=== PATIENT | female | born 2000 | race Caucasian/White ===

== ENCOUNTER 2019-08-16 16:41 | Emergency (ER) | payer BC ==
--- NOTE | 2019-08-16 16:48 | UC ---
Syncope/New Syncope HPI - HPI Summary HPI Summary: 18 yo female presents, accompanied by her mother, with syncopal episode. Pt tells me that she play volleyball and, after school today, the performance improvement analyst was stretching pt's right shoulder behind pt's head. Pt began to feel slightly lightheaded, nauseous, and felt her vision slowly fade to black. The next thing she remembers is waking up on her back on the floor staring up at her performance improvement analyst. Upon waking she felt fine and sat up. [place] said she was "out" for <30 seconds. Since that time pt has felt fine. She has never had any episodes like this in the past. She had no associated SOB or chest pain/palpitations. She had crackers for lunch today and toast this morning, but nothing else. She has been an avid horn player for many years. No smoking hx. Pt currently denies any symptoms. No headache, dizziness, vision changes, SOB, chest pain, palpitations, abdominal pain, n/v, dysuria. Pt denies any personal PMHx. No drug use. Pt and mother state no family hx of seizures or cardiac problems/events. - History Of Current Complaint Stated Complaint: FAINTED Time Seen by Provider: 08/16/19 16:47 Hx Obtained From: Patient Onset/Duration: Sudden Onset - Allergies/Home Medications Allergies/Adverse Reactions: Allergies Allergy/AdvReac Type Severity Reaction Status Date / Time No Known Allergies Allergy Verified 08/16/19 16:56 Home Medications: Home Medications NK [No Home Medications Reported] 08/16/19 [History Confirmed 08/16/19] PMH/Surg Hx/FS Hx/Imm Hx - Additional Past Medical History Additional PMH: None - Surgical History Surgical History: None - Family History Known Family History: Positive: None - Social History Occupation: Student Lives: With Family Alcohol Use: None Substance Use Type: None Smoking Status (MU): Never Smoked Tobacco Review of Systems All Other Systems Reviewed And Are Negative: No Constitutional: Positive: Other - Syncopal episode Skin: Positive: Negative Eyes: Positive: Negative ENT: Positive: Negative Respiratory: Positive: Negative Cardiovascular: Positive: Negative Gastrointestinal: Positive: Negative Genitourinary: Positive: Negative Motor: Positive: Negative Neurovascular: Positive: Negative Musculoskeletal: Positive: Negative Neurological: Positive: Negative Psychological: Positive: Negative Physical Exam - Summary Physical Exam Summary: GENERAL: NAD. WDWN. No pain distress. SKIN: No rashes, sores, ulcers, masses, lesions. HEENT: Head: AT/NC. No raccoon eyes or battles sign. Eyes: PERRLA. EOM intact. Conjunctiva clear without inflammation or discharge. Ears: Hearing grossly normal. TMs intact, no bulging, erythema, or edema. No hemotympanum Nose: Nasal mucosa pink and moist. NTTP maxillary and frontal sinus. Throat: Posterior oropharynx without exudates, erythema, or tonsillar enlargement. Uvula midline. NECK: Supple. Nontender. FROM CHEST: CTAB. No r/r/w. No accessory muscle use. Breathing comfortably and in no distress. CV: RRR. Without m/r/g. Pulses intact. Brisk cap refill. ABDOMEN: Soft. NTTP. Bowel sounds present MSK: FROM in B/L UEs and LEs with symmetric strength. NEURO: A&Ox3. 3 word recall, remote, recent memory, ability to follow 2-step directions, and attention intact. CN: II: Peripheral enriquez intact. Vision normal. III, IV, : EOMI. No nystagmus. PERRLA. V: Sensations intact and symmetric. Opens mouth and clenches teeth. VII: No facial asymmetry. Forehead wrinkles. Grins, shuts eyes, frowns, puffs cheeks. VIII: Hearing intact to finger rub. IX, X: Swallows and coughs. Uvula midline. XI: Shrugs shoulders. Turns head against resistance. XII: No tongue deviation [id number] are intact. Gait with normal base. Romberg: maintains balance, no pronator drift. Normal speech. No facial drooping. PSYCH: Age appropriate behavior. Triage Information Reviewed: Yes Vital Signs: Vital Signs: Temp Pulse Resp BP Pulse Ox 98.9 F 85 18 127/83 98 08/16/19 16:52 08/16/19 16:52 08/16/19 16:52 08/16/19 16:52 08/16/19 16:52 Laboratory Tests 08/16/19 08/16/19 17:06 17:08 POC Urine Color Yellow POC Urine Clarity Clear POC Urine pH 7.0 POC Ur Specif [place] 1.020 POC Urine Protein Negative POC Ur Glucose (UA) Negative POC Urine Ketones Negative POC Urine Blood Negative POC Urine Nitrite Negative POC Urine Bilirubin Negative POC Urine Urobilinogen 0.2 POC U Leukocyte Esteras Trace A POC Ur Test Negative Orthostatic vitals: Laying 124/66 70bpm Sitting 116/63 86bpm Standing 111/65 102bpm Vital Signs Reviewed: Yes Diagnostics - EKG ST Segment: Normal Summary of EKG Findings: NSR 81bpm No ST changes as read by Dr. Crews Syncope Course/Dx - Course Course Of Treatment: Exam WNL. EKG, POC glucose, UA, and negative/unremarkable. Orthostatic vitals WNL. Her history is most consistent with a vagal response. She has no personal or familial risk factors and has been a very active athlete for many years with no symptoms, near-syncopal episodes, or syncopal episodes. I discussed this with pt and mother with her. I offered them a further evaluation, including labwork and cardiac monitoring in the ED, but they declined this. I advised pt to refrain from sports and physical activities until cleared by PCP or specialist. Advised to f/u with PCP early next week for follow up - if pt has any symptoms such as headache, dizziness, vision changes, SOB, chest pain, palpitations, near -syncope, or syncope prior to her appt to go to the ED immediately. Pt and mother with her voiced understanding and agree with the plan. - Differential Dx/Diagnosis Provider Diagnosis: Vaso vagal episode Discharge ED - Sign-Out/Discharge Documenting (check all that apply): Patient Departure All imaging exams completed and their final reports reviewed: No Studies - Discharge Plan Condition: Stable Disposition: HOME Patient Education Materials: Syncope (ED) Referrals: Karen Bar [Primary Care Provider] - As Soon As Possible Additional Instructions: If you develop a fever, shortness of breath, chest pain, new or worsening symptoms - please go to the ED immediately. Please schedule a follow up appointment with your primary doctor for early next week for a recheck. No sports until cleared by [facility] or PCP - Billing Disposition and Condition Condition: STABLE Disposition: Home
[2019-08-16 16:56] VITALS: BP 127/83
--- NOTE | 2019-08-17 16:32 | UC ---
- Progress Note Progress Note: I CALLED THE PATIENT. NAME AND DATE OF VERIFIED. ADVISED THAT URINE CULTURE RETURNED WITH GREATER THAN 100,000 CFU/ML OF E. COLI. PATIENT DID NOT HAVE ANY URINARY SYMPTOMS DURING HER ENCOUNTER YESTERDAY. URINE DIP WAS ONLY POSITIVE FOR TRACE LEUKS. SHE CONTINUES TO DENY ANY URINARY SYMPTOMS TODAY. NO DYSURIA, FREQUENCY, URGENCY, FEVER. DISCUSSED OPTION OF TREATING FOR UTI BASED ON CULTURE RESULTS VERSUS REPEATING URINE TEST TO CONFIRM RESULTS. PATIENT STATES SHE FEELS WELL TODAY AND WOULD PREFER TO REPEAT THE URINE TEST WITH HER PCP. SHE WILL EITHER COME BACK HERE TO THE URGENT CARE THIS WEEKEND OR FOLLOW UP WITH HER PCP ON MONDAY MORNING. Course/Dx - Diagnoses Provider Diagnoses: Vaso vagal episode Discharge ED - Sign-Out/Discharge Documenting (check all that apply): Post-Discharge Follow Up All imaging exams completed and their final reports reviewed: No Studies - Discharge Plan Condition: Stable Disposition: HOME Patient Education Materials: Syncope (ED) Referrals: Kraen Bar [Primary Care Provider] - As Soon As Possible Additional Instructions: If you develop a fever, shortness of breath, chest pain, new or worsening symptoms - please go to the ED immediately. Please schedule a follow up appointment with your primary doctor for early next week for a recheck. No sports until cleared by [facility] or PCP - Billing Disposition and Condition Condition: STABLE Disposition: Home
== END 2019-08-16 17:34 | disposition home or self-care (01) ==
LOC: UCEAST 16:41
DX: R55 Syncope and collapse (principal); Z32.02 Encounter for pregnancy test, result negative
CPT/HCPCS: 81003; 84702; 87077; 87086; 87186; 99202; G0463

== ENCOUNTER 2019-09-14 21:03 | Emergency (ER) | payer BC ==
--- NOTE | 2019-09-14 21:28 | ED ---
GI/ HPI - HPI Summary HPI Summary: This patient is a 18 year old female presenting to [facility] with a chief complaint of vomiting since twelve hours ago. The patient states she was drinking last night and had "a bunch of shots" of vodka. She denies fever, diarrhea. She states abdominal discomfort. She reports chills. She reports no medical history and NKDA. - History of Current Complaint Chief Complaint: EDNauseaVomitDiarrh Time Seen by Provider: 09/14/19 21:15 Stated Complaint: "VOMITING PER PT" Hx Obtained From: Patient Hx Last Menstrual Period: iud Onset/Duration: Started Hours Ago Pain Intensity: 6 - Allergy/Home Medications Allergies/Adverse Reactions: Allergies Allergy/AdvReac Type Severity Reaction Status Date / Time No Known Allergies Allergy Verified 08/16/19 16:56 Home Medications: Home Medications Levonorgestrel (Iud) [Kyleena IUD] 17.5 mcg IU SEE INSTRUCTIONS 09/14/19 [ History Confirmed 09/14/19] PMH/Surg Hx/FS Hx/Imm Hx Cardiovascular History: Denies: Hx Coronary Artery Disease Respiratory History: Denies: Hx Chronic Obstructive Pulmonary Disease (COPD) Infectious Disease History: No Infectious Disease History: Denies: Traveled Outside the [place] in Last 30 Days - Family History Known Family History: Negative: Cardiac Disease, Diabetes - Social History Alcohol Use: None Substance Use Type: Reports: None Smoking Status (MU): Never Smoked Tobacco Review of Systems Positive: Chills. Negative: Fever Positive: Abdominal Pain, Vomiting, Nausea All Other Systems Reviewed And Are Negative: Yes Physical Exam - Summary Physical Exam Summary: General: Well-developed, mildly ill appearing FEMALE. No acute distress. HEENT: Normocephalic, Atraumatic. Eyes: Conjuctiva normal, PERRL. Ears: TMs within normal limits. Nares: (-) discharge, (-) erythema. Oropharynx: Clear, mucous membranes moist, (-) exudates. Neck: Soft, FROM, (-) lymphadenopathy, (-) thyromegaly, (-) JVD. Cardiovascular: Normal sinus rhythm, (-) murmur. Lungs: Clear to auscultation bilaterally (-) wheezes, (-) rales, (-) rhonchi. Abdomen: Soft, mild suprapubic tenderness, non-distended, (-) organomegaly, normal bowel sounds. Back: (-) CVA tenderness Extremities: No edema. Skin: Warm, (-) rash. Pale, clammy. Neuro: Alert and oriented x3, no focal deficits. Psychiatric: Mood normal, affect normal. Triage Information Reviewed: Yes Vital Signs On Initial Exam: Temp Pulse Resp BP Pulse Ox 98.2 F 65 18 150/71 99 09/14/19 21:04 09/14/19 21:04 09/14/19 21:04 09/14/19 21:04 09/14/19 21:04 Vital Signs Reviewed: Yes Procedures - Sedation Patient Received Moderate/Deep Sedation with Procedure: No Diagnostics - Vital Signs Vital Signs Temp Pulse Resp BP Pulse Ox 09/14/19 21:04 98.2 F 65 18 150/71 99 - Laboratory Result Diagrams: 09/14/19 22:14 09/14/19 22:14 Lab Statement: Any lab studies that have been ordered have been reviewed, and results considered in the medical decision making process. GIGU Course/Dx - Course Course Of Treatment: This patient is a 18 year old female presenting to [facility] with a chief complaint of vomiting since one hour ago. Physical exam was unremarkable except for pale, clammy skin and mild suprapubic tenderness. Labs were unremarkable except MPV 7.3 L, Absolute Neuts 8.9 H, Absolute Lymphs 0.7 L , Carbon Dioxide 20 L, Anion Gap 15 H, BUN/Creatinine Ratio 22.7 H, Glucose 112 H, Lactic Acid 3.7 H, Total Bilirubin 1.10 H, The patient was administered Protonix, Zofran, Ativan and NS in the ED for her symptoms. - Diagnoses Provider Diagnoses: Vomiting Discharge ED - Sign-Out/Discharge Documenting (check all that apply): Patient Departure - Discharge - Discharge Plan Condition: Stable Disposition: HOME Prescriptions: O ndansetron ODT 4MG 5TAB PRPK 4 mg PO .ED PREPAK PRN 2 Days #5 francois PRN Reason: Nausea Patient Education Materials: Acute Nausea and Vomiting (ED) Referrals: Karen Bar [Primary Care Provider] - Additional Instructions: Return to ED with new or worsening symptoms - Billing Disposition and Condition Condition: STABLE Disposition: Home - Attestation Statements Document Initiated by Scribe: Yes Documenting Scribe: Martin Claros Provider For Whom Scribe is Documenting (Include Credential): Ana Cristina Skinner MD Scribe Attestation: I, Martin Claros, scribed for Ana Cristina Skinner MD on 09/15/19 at 0429. Scribe Documentation Reviewed: Yes Provider Attestation: The documentation as recorded by the scribe, Martin Claros accurately reflects the service I personally performed and the decisions made by me, Ana Cristina Skinner MD Status of Scribe Document: Viewed
[2019-09-14] MEDS ORDERED: Pantoprazole IV* 40 MG IV ONE (21:53)
[2019-09-14] MEDS ORDERED: Ondansetron INJ* 2 MG/ML VIAL IV ONE ×2 (21:53→23:04)
[2019-09-14] MEDS ORDERED: NS 0.9% 1000 ML** 1,000 ML IV ONE ×2 (21:53→23:04)
[2019-09-14] MEDS ORDERED: LORazepam INJ* 2 MG/ML 1 ML VIAL IV PUSH ONE (22:08)
[2019-09-14] MEDS ORDERED: Lorazepam PYXIS KEY PRN (22:08)
[2019-09-14 22:24] LABS: ABS Lymphocytes 0.7 10^3/ul (1.0-4.8); ABS Monocytes 0.2 10^3/ul (0-0.8); ABS Neutrophils 8.9 10^3/ul (1.5-7.7); Hematocrit 39 % (35-47); Hemoglobin 13.5 g/dL (12.0-16.0); Lymphocyte % 6.8 %; Mean Corpuscular HGB Conc 35 g/dL (31-36); Mean Corpuscular Hemoglobin 30 pg (27-31); Mean Corpuscular Volume 88 fL (80-97); Mean Platelet Volume 7.3 fL (7.4-10.4); Platelet Count 229 10^3/uL (150-450); Red Blood Count 4.45 10^6 /uL (3.70-4.87); Red Cell Distribution Width 13 % (10-15); White Blood Count 9.8 10^3/uL (3.5-10.8)
[2019-09-14 22:41] LABS: ALT 22 U/L (7-52); AST 22 U/L (13-39); Albumin 4.9 g/dL (3.2-5.2); Albumin/Globulin Ratio 1.7 (1-3); Alkaline Phosphatase 75 U/L (34-104); Anion Gap 15 mmol/L (2-11); BUN/Creatinine Ratio 22.7 (8-20); Blood Urea Nitrogen 17 mg/dL (6-24); C Reactive Protein 2.08 mg/L (<8.01); CO2 Carbon Dioxide 20 mmol/L (22-32); Chloride 105 mmol/L (101-111); EGFR African American 120.5 (>60); EGFR Non-African American 99.5 (>60); Globulin 2.9 g/dL (2-4); Glucose 112 mg/dL (70-100); Sodium 140 mmol/L (135-145); Total Protein 7.8 g/dL (6.4-8.9)
[2019-09-14 22:47] LABS: HCG Pregnancy < 0.60 mIU/mL
[2019-09-15 01:46] VITALS: BP 116/55
== END 2019-09-15 01:45 | disposition home or self-care (01) ==
LOC: ED 21:03
DX: R11.2 Nausea with vomiting, unspecified (principal); R68.83 Chills (without fever); R10.30 Lower abdominal pain, unspecified
CPT/HCPCS: 36415; 80053; 83605; 83690; 84702; 85025; 86140; 87040; 96361; 96374; 96375; 96376; 99284; J2060; J2405